=== PATIENT | male | born 1980 ===

== ENCOUNTER 2020-02-10 15:01 | Emergency (ER) | payer OTHER, SELFPAY ==
[2020-02-11 12:23] LABS: SARS-CoV-2 MS2 Positive; SARS-CoV-2 N Gene Positive; SARS-CoV-2 S Gene Positive; SARS-CoV-2 orf1ab Positive
== END 2020-02-10 15:30 | disposition home or self-care (01) ==
LOC: ERS 15:01
DX: U07.1 COVID-19 (principal)
CPT/HCPCS: 87635; 99284; U0003

== ENCOUNTER 2022-06-26 18:30 | Emergency (ER) | payer OTHER, SELFPAY | END 2022-06-26 20:07 | disposition home or self-care (01) | LOC: ERS 18:30 | DX: S16.1XXA Strain of muscle, fascia and tendon at neck level, initial encounter (principal); E11.9 Type 2 diabetes mellitus without complications; V69.9XXA Occupant (driver) (passenger) of heavy transport vehicle injured in unspecified traffic accident, initial encounter; Z79.84 Long term (current) use of oral hypoglycemic drugs; Z79.899 Other long term (current) drug therapy | CPT/HCPCS: 99283 ==